=== PATIENT | female | born 1970 | race Caucasian/White ===

== ENCOUNTER 2016-07-31 12:33 | Emergency (ER) | payer OTHER | END 2016-07-31 16:05 | disposition home or self-care (01) | LOC: ER1 12:33 | DX: L27.0 Generalized skin eruption due to drugs and medicaments taken internally (principal); T50.995A Adverse effect of other drugs, medicaments and biological substances, initial encounter; E11.649 Type 2 diabetes mellitus with hypoglycemia without coma; F17.200 Nicotine dependence, unspecified, uncomplicated; Z95.1 Presence of aortocoronary bypass graft; Z88.5 Allergy status to narcotic agent; L03.90 Cellulitis, unspecified; T78.40XA Allergy, unspecified, initial encounter | CPT/HCPCS: 82962; 96365; 96366; 96374; 96375; 99282; J1200; J2407; J2930; J7050; J7070 ==